=== PATIENT | female | born 1965 | race Caucasian/White ===

== ENCOUNTER → 2024-08-17 17:09 | Outpatient (REF) | payer BC, SELFPAY | LOC: RAD 17:09 | PROVIDERS: ATTENDING PHYSICIAN Chiropractor | DX: M99.07 Segmental and somatic dysfunction of upper extremity (principal) | CPT/HCPCS: 73110 ==

== ENCOUNTER → 2025-01-29 12:10 | Outpatient (REF) | payer BC, SELFPAY | LOC: HWWDC 12:10 | PROVIDERS: ATTENDING PHYSICIAN Obstetrics & Gynecology Gynecology; FAMILY PHYSICIAN Student in an Organized Health Care Education/Training Program | DX: Z12.31 Encounter for screening mammogram for malignant neoplasm of breast (principal) | CPT/HCPCS: 77063; 77067 ==